=== PATIENT | male | born 1970 | race Two or more races ===

== ENCOUNTER 2022-03-03 20:02 | Emergency (ER) | payer BC ==
[2022-03-03 20:10] VITALS: BP 166/106; PULSE 75; RESP 18; TEMP 97.8; BMI 36.1
[2022-03-03] MEDS ORDERED: DIPHTH,PERTUSS(ACELL),TET 0.5 ML DISP.SYRIN IM ONE ×2 (20:46→21:22)
== END 2022-03-03 22:00 | disposition home or self-care (01) ==
LOC: JERFT 20:02
PROC: 0HQGXZZ Repair Left Hand Skin, External Approach (ICD-10-PCS; principal; 2022-03-03)
PROC: 3E0234Z Introduction of Serum, Toxoid and Vaccine into Muscle, Percutaneous Approach (ICD-10-PCS; 2022-03-03)
DX: S61.211A Laceration without foreign body of left index finger without damage to nail, initial encounter (principal); I10 Essential (primary) hypertension
CPT/HCPCS: 90715; 99283-25